=== PATIENT | female | born 1995 | race Caucasian/White ===

== ENCOUNTER 2024-08-06 16:34 | Emergency (ER) | payer OTHER ==
[2024-08-06 17:07] LABS: #Basophils 0.07 10x3/uL (0.0-0.2); %Basophils 0.7 % (0.0-1.0); %Eosinophils 7.4 % (0.0-10.0); %Lymphocytes 27.3 % (21.0-51.0); %Monocytes 4.5 % (0.0-10.0); %Neutrophils 59.8 % (42.0-75.0); Hematocrit 40.6 % (36.0-47.0); Hemoglobin 14.4 g/dL (12.0-16.0); Mean Corpuscular HGB CONC 35.5 g/dL (32.0-36.0); Mean Corpuscular Hemoglobin 30.8 pg (27.0-31.0); Mean Corpuscular Volume 86.9 fL (78.0-98.0); Platelet Count 237 10x3/uL (130-400); RBC Distribution Width 12.6 % (11.5-14.5); Red Blood Cell (RBC) Count 4.67 mill/uL (4.20-5.40)
[2024-08-06 17:28] LABS: ALT (SGPT) 43 U/L (Less than 34); AST (SGOT) 30 U/L (11-34); Albumin 3.9 g/dL (3.1-4.5); Alkaline Phosphatase 72 U/L (40-110); Anion Gap 12 mmol/L (10-20); BUN (Urea Nitrogen) 11 mg/dL (7.0-18.7); Bilirubin, Total 0.2 mg/dL (0.3-1.2); Calc. Creatinine Clearance 0 mL/min (70-130); Calcium 8.8 mg/dL (7.8-10.44); Carbon Dioxide 20 mmol/L (22-29); Chloride 111 mmol/L (98-107); Estimated GFR 124; Globulin 3.3 g/dL (2.4-3.5); Glucose 122 mg/dL (70-105); Potassium 3.8 mmol/L (3.5-5.1); Protein, Total 7.2 g/dL (6.0-8.3); Sodium 139 mmol/L (136-145)
[2024-08-06] MEDS ORDERED: Lidocaine 1% PF 5 ML VIAL ONE (18:20)
[2024-08-06] MEDS ORDERED: Ketorolac Tromethamine 30 MG (1 mL) VIAL ONE (18:26)
[2024-08-06] MEDS ORDERED: fentaNYL 50 mcg/mL 1 mL Vial ONE (18:27)
[2024-08-06] MEDS ORDERED: Clindamycin/D5W 900 MG in Premix 1 BAG IVPB SCH (18:45)
[2024-08-06] MEDS ORDERED: Amoxicillin/Potassium Clav 875 MG TAB ONE (19:20)
== END 2024-08-06 19:41 | disposition home or self-care (01) ==
LOC: ERS 16:34
DX: L03.012 Cellulitis of left finger (principal); W55.01XA Bitten by cat, initial encounter
CPT/HCPCS: 10060; 36415; 80053; 83605; 85025; 87040; 96374; 96375; J1885; J3010; J3490